=== PATIENT | female | born 1965 | race Caucasian/White ===

== ENCOUNTER → 2016-12-27 | Outpatient (CLI) | payer BC ==
--- NOTE | 2016-12-27 09:50 | MM ---
Reason for exam: additional evaluation requested from prior study. Last mammogram was performed 1 year and 10 months ago. History: Patient had first child at age 30. Family history of premenopausal breast cancer in sister at age 40. Benign US breast aspiration ea add RT of the right breast, February 22, 2015. Benign US breast aspiration single RT of the right breast, February 22, 2015. Benign US breast aspiration ea add LT of the left breast, January 19, 2014. Benign US breast aspiration single LT of the left breast, January 19, 2014. Benign US breast aspiration single RT of the right breast, January 19, 2014. Took hormonal contraceptives for 8 years beginning at age 19. Physical Findings: Nurse did not find any significant physical abnormalities on exam. MG Diagnostic Mammo w CAD LISS Bilateral CC and MLO view(s) were taken. Prior study comparison: February 13, 2015, bilateral MG diagnostic mammo w CAD LISS. January 11, 2014, bilateral MG diagnostic mammo w CAD LISS. The breast tissue is heterogeneously dense. This may lower the sensitivity of mammography. Previous mammotome biopsy in the right and left breast. No significant new findings when compared with previous films. These results were verbally communicated with the patient and result sheet given to the patient on 12/27/16. ASSESSMENT: Benign, BI-RAD 2 RECOMMENDATION: Routine screening mammogram of both breasts in 1 year.
--- NOTE | 2016-12-27 09:53 | USB ---
Reason for exam: follow-up at short interval from prior study. History: Patient had first child at age 30. Family history of premenopausal breast cancer in sister at age 40. Benign US breast aspiration ea add RT of the right breast, February 22, 2015. Benign US breast aspiration single RT of the right breast, February 22, 2015. Benign US breast aspiration ea add LT of the left breast, January 19, 2014. Benign US breast aspiration single LT of the left breast, January 19, 2014. Benign US breast aspiration single RT of the right breast, January 19, 2014. Took hormonal contraceptives for 8 years beginning at age 19. US Breast RT Right breast ultrasound includes all four quadrants, the retroareolar region and axilla. Finding demonstrates a 0.4cm lesion too small to characterize at 10 o'clock, ductal ectasia at the nipple and several cystic lesions measuring 2.0 x 0.7 x 1.9cm at 12 o'clock, 0.9cm at 1 o'clock, 1.7 x 1.9 x 0.7cm at 2 o'clock and 0.8 x 0.7 x 0.8cm at 10 o'clock. These results were verbally communicated with the patient and result sheet given to the patient on 12/27/16. ASSESSMENT: Benign, BI-RAD 2 RECOMMENDATION: Routine screening mammogram of both breasts in 1 year. Back on schedule.
== END | disposition home or self-care (01) ==
LOC: RADMAMWWP 07:43
PROVIDERS: ATTEND Family Medicine
DX: N60.01 Solitary cyst of right breast (principal)
CPT/HCPCS: 76641; G0204

== ENCOUNTER → 2018-01-28 | Outpatient (CLI) | payer BC ==
--- NOTE | 2018-01-29 08:49 | MM ---
Reason for exam: screening (asymptomatic). Last mammogram was performed 1 year and 1 month ago. History: Patient had first child at age 30. Family history of premenopausal breast cancer in sister at age 40. Benign US breast aspiration ea add RT of the right breast, February 22, 2015. Benign US breast aspiration single RT of the right breast, February 22, 2015. Benign US breast aspiration ea add LT of the left breast, January 19, 2014. Benign US breast aspiration single LT of the left breast, January 19, 2014. Benign US breast aspiration single RT of the right breast, January 19, 2014. Took hormonal contraceptives for 8 years beginning at age 19. Physical Findings: A clinical breast exam by your physician is recommended on an annual basis and results should be correlated with mammographic findings. MG Screening Mammo w CAD Bilateral CC and MLO view(s) were taken. Prior study comparison: December 27, 2016, bilateral MG diagnostic mammo w CAD LISS. February 13, 2015, bilateral MG diagnostic mammo w CAD LISS. The breast tissue is heterogeneously dense. This may lower the sensitivity of mammography. Previous mammotome biopsy in the right breast. There is chronic nodularity bilaterally. No significant changes when compared with prior studies. ASSESSMENT: Benign, BI-RAD 2 RECOMMENDATION: Routine screening mammogram of both breasts in 1 year.
== END | disposition home or self-care (01) ==
LOC: RADMAMWWP 10:54
PROVIDERS: ATTEND Family Medicine
DX: Z12.31 Encounter for screening mammogram for malignant neoplasm of breast (principal)
CPT/HCPCS: 77067

== ENCOUNTER → 2019-07-27 | Outpatient (CLI) | payer BC ==
--- NOTE | 2019-07-28 08:24 | MM ---
Reason for exam: screening (asymptomatic). Last mammogram was performed 1 year and 6 months ago. History: Patient is postmenopausal and had first child at age 30. Family history of premenopausal breast cancer in sister at age 40. Benign US breast aspiration ea add RT of the right breast, February 22, 2015. Benign US breast aspiration single RT of the right breast, February 22, 2015. Benign US breast aspiration ea add LT of the left breast, January 19, 2014. Benign US breast aspiration single LT of the left breast, January 19, 2014. Benign US breast aspiration single RT of the right breast, January 19, 2014. Took hormonal contraceptives for 8 years beginning at age 19. Physical Findings: A clinical breast exam by your physician is recommended on an annual basis and results should be correlated with mammographic findings. MG Screening Mammo w CAD Bilateral CC and MLO view(s) were taken. Prior study comparison: January 28, 2018, bilateral MG screening mammo w CAD. December 27, 2016, bilateral MG diagnostic mammo w CAD LISS. The breast tissue is heterogeneously dense. This may lower the sensitivity of mammography. There is chronic nodularity bilaterally. No significant changes when compared with prior studies. ASSESSMENT: Benign, BI-RAD 2 RECOMMENDATION: Routine screening mammogram of both breasts in 1 year.
== END | disposition home or self-care (01) ==
LOC: RADMAMWWP 08:53
PROVIDERS: ATTEND Family Medicine
DX: Z12.31 Encounter for screening mammogram for malignant neoplasm of breast (principal)
CPT/HCPCS: 77067

== ENCOUNTER 2020-05-17 10:43 | Day surgery (SDC) | payer BC ==
[2020-05-16 10:05] VITALS: BMI 30.9
[~2020-05-17 10:43] MED LIST: LACTATED RINGERS 1,000 ML IV SCH
[2020-05-17 11:19] VITALS: RESP 16; TEMP 98.3
[2020-05-17] MEDS ORDERED: LIDOCAINE 1% (10MG/ML) FOR IV START INTRADERMA ONE (11:19)
[2020-05-17] MEDS ORDERED: PROPOFOL 10 MG/ML 20 ML VIAL IV ONE (11:36)
--- NOTE | 2020-05-17 11:52 | P.PCN ---
Date of Procedure: 05/17/20 Procedure(s) Performed: BRIEF HISTORY: Patient is a 54-year-old pleasant female scheduled for an elective colonoscopy as a part of screening for colorectal neoplasia. She has family history of colon cancer diagnosed in her father at age 70. PROCEDURE PERFORMED: Colonoscopy with snare polypectomy. PREOPERATIVE DIAGNOSIS: Screening for colon cancer/family history of colon cancer IV sedation per Anesthesia. PROCEDURE: After informed consent was obtained, the patient, was brought into the endoscopy unit. IV sedation was administered by Anesthesia under continuous monitoring. Digital rectal examination was normal. Initially the Olympus CF-160 flexible video colonoscope was then inserted in the rectum, gradually advanced into the cecum without any difficulty. Careful examination was performed as the scope was gradually being withdrawn. Ileocecal valve and the appendiceal orifice were visualized and appeared normal. Prep was excellent. In the base of the cecum there was a 3 mm and 5 mm polyp that was removed by snare polypectomy. Mucosa of the cecum, ascending colon, transverse colon, descending colon appeared normal. The sigmoid colon there was a 1 cm pedunculated polyp removed by snare polypectomy. Rest of the, sigmoid colon, and rectum appeared normal. Retroflexion was performed in the rectum and no lesions were seen. The patient tolerated the procedure well. IMPRESSION: 3 mm and 5 mm cecal polyp status post polypectomy 1 cm; sigmoid polyp status post polypectomy RECOMMENDATIONS: Findings of this examination were discussed with the patient and if her family. She was advised to follow with the biopsy. The biopsy shows an adenoma she can have a repeat colonoscopy in 3 years.
[2020-05-17 12:10] VITALS: BP 118/72; PULSE 82
== END 2020-05-17 12:46 | disposition home or self-care (01) ==
LOC: ORWHC2ENDO 10:43
PROVIDERS: ATTEND Internal Medicine Gastroenterology
DX: Z12.11 Encounter for screening for malignant neoplasm of colon (principal); D12.0 Benign neoplasm of cecum; D12.5 Benign neoplasm of sigmoid colon; Z80.0 Family history of malignant neoplasm of digestive organs; Z88.5 Allergy status to narcotic agent
CPT/HCPCS: 88305; 45385; J2704

== ENCOUNTER → 2023-07-11 | Outpatient (CLI) | payer BC ==
--- NOTE | 2023-07-11 15:30 | CT ---
EXAMINATION TYPE: CT sinus wo con CT DLP: 569 mGycm, Automated exposure control for dose reduction was used. DATE OF EXAM: 07/11/2023 2:15 PM COMPARISON: None. CLINICAL INDICATION:Female, 58 years old with history of J31.0 CHRONIC RHINITIS; , CHRONIC SINUSITIS TECHNIQUE: Multiple thin axial images were obtained through the paranasal sinuses without the use of IV contrast. Additional coronal and sagittal reformatted images were submitted for evaluation. Contrast used: none Oral contrast used: none FINDINGS: Frontal sinuses: Normally developed and aerated. Frontal Recess: Clear Maxillary Sinuses: Normally developed and aerated. Maxillary Infundibula(OMC): Clear, No Sin cells identified. Ethmoid sinuses: Normally developed and aerated. Ethmoidal notch: Unprotected bilateral anterior ethm oidal arteries. Sphenoid sinuses: Normally developed and aerated. There is sellar sphenoid sinus pneumatization witho ut evidence of dehiscence. No dehiscence of carotid canal. No evidence of optic nerve dehiscence wit hin the sphenoid sinus. No evidence of Onodi cells. Sphenoethmoidal recesses: Clear. Nasal septum: Within normal limits.. Nasal Turbinates: Within normal limits. Mastoid air cells & middle ears: The air cells are clear. The middle ears are grossly unremarkable. Modified Soft tissues & Brain: Partially seen without gross abnormality. Globes are intact. Other: Cribriform plate demonstrates asymmetric Keros classification type 2 on the left and type I on the ri ght cribriform plate. No evidence of bony dehiscence of skull base. Lamina papyracea is intact without evidence of remote orbital fracture or orbital prolapse into the e thmoid sinus. IMPRESSION: 1. No significant mucosal sinus disease. 2. The ostiomeatal units, frontonasal and sphenoethmoidal recesses are clear.
== END | disposition home or self-care (01) ==
LOC: RADCTMAIN 13:36
PROVIDERS: ATTEND Otolaryngology
DX: J31.0 Chronic rhinitis (principal); J32.9 Chronic sinusitis, unspecified
CPT/HCPCS: 70486

== ENCOUNTER 2023-07-16 06:44 | Day surgery (SDC) | payer BC ==
[2023-07-15 09:16] VITALS: BMI 36.0
[2023-07-16] MEDS: LACTATED RINGERS 1,000 ML IV SCH (07:09)
[2023-07-16 07:24] LABS: Glucose,Whole Blood 112 mg/dL (70-110)
[2023-07-16 07:30] VITALS: TEMP 97.8
[2023-07-16] MEDS ORDERED: PROPOFOL 10 MG/ML 20 ML VIAL IV ONE (08:13)
--- NOTE | 2023-07-16 08:30 | P.PCN ---
Date of Procedure: 07/16/23 Procedure(s) Performed: BRIEF HISTORY: Patient is a 58-year-old pleasant female scheduled for an elective colonoscopy as a part of evaluation of prior history of colon polyps. Her last colonoscopy was 3 years ago. PROCEDURE PERFORMED: Colonoscopy. PREOPERATIVE DIAGNOSIS: And history of colon polyps. IV sedation per Anesthesia. PROCEDURE: After informed consent was obtained, the patient, was brought into the endoscopy unit. IV sedation was administered by Anesthesia under continuous monitoring. Digital rectal examination was normal. Initially the Olympus CF-160 flexible video colonoscope was then inserted in the rectum, gradually advanced into the cecum without any difficulty. Careful examination was performed as the scope was gradually being withdrawn. Ileocecal valve and the appendiceal orifice were visualized and appeared normal. Prep was excellent. Mucosa of the cecum, ascending colon, transverse colon, descending colon, sigmoid colon, and rectum appeared normal. Retroflexion was performed in the rectum and no lesions were seen. The patient tolerated the procedure well. IMPRESSION: Normal-appearing colon from rectum to cecum with no evidence of colorectal neoplasia . RECOMMENDATIONS: Findings of this examination were discussed with the patient as well as a family. She was advised to have a repeat colonoscopy in 5 years now because of the prior history of colon polyps.
[2023-07-16 09:06] VITALS: BP 105/64; PULSE 69; RESP 0
== END 2023-07-16 09:20 | disposition home or self-care (01) ==
LOC: ORWHC2ENDO 06:44
PROVIDERS: ATTEND Internal Medicine Gastroenterology
DX: Z12.11 Encounter for screening for malignant neoplasm of colon (principal); E66.9 Obesity, unspecified; H91.90 Unspecified hearing loss, unspecified ear; Z68.35 Body mass index [BMI] 35.0-35.9, adult; Z86.010 Personal history of colon polyps; Z79.899 Other long term (current) drug therapy; Z88.5 Allergy status to narcotic agent
CPT/HCPCS: 45378; J2704

== ENCOUNTER → 2023-07-18 | Outpatient (CLI) | payer BC ==
--- NOTE | 2023-07-18 16:57 | US ---
EXAMINATION TYPE: US venous doppler duplex LE DATE OF EXAM: 07/18/2023 3:52 PM COMPARISON: NONE CLINICAL INDICATION: Female, 58 years old with history of I87.2 VENOUS INSUFFICIENCY (CHRONIC) (PERIP HERAL); Swelling and pain bilateral lower extremities SIDE PERFORMED: Bilateral TECHNIQUE: The lower extremity deep venous system is examined utilizing real time linear array sonog fela with graded compression, doppler sonography and color-flow sonography. VESSELS IMAGED: Common Femoral Vein Deep Femoral Vein Greater Saphenous Vein * Femoral Vein Popliteal Vein Small Saphenous Vein * Proximal Calf Veins (* superficial vessels) Right Leg: Negative for DVT Left Leg: Negative for DVT IMPRESSION: Grayscale, color doppler, spectral doppler imaging performed of the deep veins of the lo wer extremities. There is normal flow, compressibility, vascular waveforms.
== END | disposition home or self-care (01) ==
LOC: RADUSWWP 15:49
PROVIDERS: ATTEND Family Medicine
DX: I87.2 Venous insufficiency (chronic) (peripheral) (principal)
CPT/HCPCS: 93970

== ENCOUNTER → 2023-07-21 | Outpatient (CLI) | payer BC ==
--- NOTE | 2023-07-23 20:02 | MM ---
Reason for Exam: Screening (asymptomatic). Last screening mammogram was performed 12 month(s) ago. Patient History: Menarche at age 11. First Full-Term at age 30. Late child-bearing (after 30). Postmenopausal. Hormonal Contraceptives, starting at age 19 for 8 years. 02/22/2015, Benign Cyst Aspiration on the right side. 02/22/2015, Benign Cyst Aspiration on the right side. 01/19/2014, Benign Cyst Aspiration on the right side. 01/19/2014, Benign Cyst Aspiration on the left side. 01/19/2014, Benign Cyst Aspiration on the left side. Sister had breast cancer, age 40. Risk Values: Zuly 5 year model risk: 2.8%. NCI Lifetime model risk: 14.6%. Prior Study Comparison: 01/28/2018 Bilateral Screening Mammogram, [facility]. 07/27/2019 Bilateral Screening Mammogram, [facility]. 07/19/2022 Bilateral MG 3D screening mammo w/cad, [facility]. Tissue Density: The breast tissue is heterogeneously dense. This may lower the sensitivity of mammography. Findings: Analyzed By CAD. 2 microclips in the right breast and one microclip in the left breast from prior biopsies. Chronic nodularity on the left. There is no suspicious group of microcalcifications or new suspicious mass in either breast. Overall Assessment: Benign, BI-RAD 2 Management: Screening Mammogram of both breasts in 1 year. . Patient should continue monthly self-breast exams. A clinical breast exam by your physician is recommended on an annual basis. This exam should not preclude additional follow-up of suspicious palpable abnormalities. Note on Zuly scores and lifetime risk: 1. A Zuly score greater than 3% is considered moderate risk. If this is the case, consider specialist referral to assess eligibility for a risk reducing agent. 2. If overall lifetime risk for the development of breast cancer is 20% or higher, the patient may qualify for future screening with alternating mammogram and breast MRI. Electronically signed and approved by: Jefferson Kline M.D. Radiologist
== END | disposition home or self-care (01) ==
LOC: RADMAMWWP 16:25
PROVIDERS: ATTEND Family Medicine
DX: Z12.31 Encounter for screening mammogram for malignant neoplasm of breast (principal); Z78.0 Asymptomatic menopausal state; Z80.3 Family history of malignant neoplasm of breast
CPT/HCPCS: 77063; 77067

== ENCOUNTER → 2024-10-05 | Outpatient (CLI) | payer MEDICAID ==
[2024-10-05 13:10] VITALS: BP 140/83; PULSE 109; RESP 16; TEMP 97.8; BMI 38.3
--- NOTE | 2024-10-05 15:31 | P.HPBAR ---
Bariatric H&P - History & Physicial H&P Date: 10/05/24 History & Physicial: Visit/CC: New pt Patient initial contact: Initial weight: Initial weight in pounds: Height: 5 ft 4 in Initial BMI: Last weight: Current weight: 101.264 kg Current weight in pounds: 223.25 Current BMI: 38.3 [place] body weight (based on NIH guidelines): 54.54 kg Excess body weight loss: The patient is a 59 year-old F who presents for Bariatric Assessment. Patient interested in sleeve gastrectomy. Apparently her sister and [id number] both had the sleeve surgery performed and she was happy with her outcomes. Patient has been trying various weight loss measures for at least the last 10 years. Has tried various medications including GLP-1 agonist with marginal success. This is her heaviest weight. Current BMI 38.3. Patient suffers from hypercholesterolemia, GERD, fatty liver, varicose veins. No history of DVT or dysphagia. No tobacco use. Patient works as an COMPUTER SYSTEMS ARCHITECT. Patient takes Protonix daily for the last 2 years because of GERD symptoms. Says it controls her symptoms well. Heart rate today 109 which the patient states she often has issues with mild tachycardia. Surgical history includes tubal ligation, endometrial ablation, colonoscopy, ear tubes. No known hernias in the past. Review of Systems The patient denies any acute changes in vision or hearing, no dysphagia or odynophagia, no chest pain or shortness of breath, no dysuria or hematuria, no headache, no runny nose, no rectal bleeding or melena, no unexplained weight loss Past Medical History Additional Past Medical History / Comment(s): Family hx colon cancer. Occ hemorrhoids. History of Any Multi-Drug Resistant Organisms: None Reported Past Surgical History: Section, Ear Surgery, Tubal Ligation, Uterine Ablation Additional Past Surgical History / Comment(s): ENDOMETRIAL ABLATION WITH NOVASURE 2008?. Colonoscopy. LISS. EAR SURGERY @ AGE 5. 1994 Past Anesthesia/Blood Transfusion Reactions: No Reported Reaction Smoking Status: Never smoker Past Alcohol Use History: Rare Past Drug Use History: None Reported - Past Family History Father Family Medical History: Cancer Additional Family Medical History / Comment(s): COLON/RECTAL CA Mother Family Medical History: Cancer Additional Family Medical History / Comment(s): SARCOMA Sister(s) Family Medical History: Cancer Additional Family Medical History / Comment(s): BREAST CA Surgical - Exam Vital Signs Temp Pulse Resp BP 97.8 F 109 H 16 140/83 10/05/24 13:04 10/05/24 13:04 10/05/24 13:04 10/05/24 13:04 Physical exam: General: Well-developed, well-nourished HEENT: Normocephalic, sclerae nonicteric Abdomen: Nontender, nondistended Extremities: No edema Neuro: Alert and oriented Bariatric Assessment & Plan (1) Obesity (BMI 30-39.9) Narrative/Plan: 59-year-old female with severe obesity. BMI 38.3. Patient I discussed surgical options in detail. Patient is interested in proceeding with sleeve gastrectomy. Will proceed with upper endoscopy first to evaluate for hiatal hernia or consequences of chronic GERD symptoms. Discussed the risks of both sleeve gastrectomy and gastric bypass at length. Also discussed average weight loss amounts postoperatively. Discussed with patient that the sleeve gastrectomy a higher incidence of intractable reflux postoperatively. Patient would like to proceed with upper endoscopy first to assess. Status: Acute Bariatric Checklist Checklist: Plan: Checklist: EGD: 1. Hiatal hernia: 2. H. Pylori: HgbA1c: Vitamin D: Smoking: Never smoker Primary care physician referral: Psychiatry clearance: Cardiology clearance: Sleep study: Diet journal: VTE risk score: VTE risk level: Rehab needs at discharge:
[2024-10-05 20:53] LABS: HCT 42.7 % (37.2-46.3); HGB 13.7 g/dL (12.0-15.0); MCH 25.2 pg (27.0-32.0); MCHC 32.1 g/dL (32.0-37.0); MCV 78.5 FL (80.0-97.0); Mean Platelet Volume 10.5 FL (9.5-12.2); NRBC Per 100 WBC 0 X 10*3/uL (0.00-0.01); Platelet Count 337 X 10*3/uL (140-440); RBC 5.44 X 10*6/uL (4.10-5.20); RDW 14.1 % (11.5-14.5); WBC 8.32 X 10*3/uL (4.50-10.00)
[2024-10-05 21:13] LABS: ALT 40 U/L (8-44); AST 26 U/L (13-35); Albumin 4.4 g/dL (3.8-4.9); Albumin/Globulin Ratio 1.91 Ratio (1.60-3.17); Alkaline Phosphatase 161 U/L (41-126); Blood Urea Nitrogen 13.3 mg/dL (9.0-27.0); Calcium 9.5 mg/dL (8.7-10.3); Carbon Dioxide 22.2 mmol/L (21.6-31.8); Chloride 104 mmol/L (96-109); Globulin 2.3 g/dL (1.6-3.3); Glucose 115 mg/dL (70-110); Iron 57 UG/DL (50-170); Potassium 4.3 mmol/L (3.5-5.5); Sodium 141 mmol/L (135-145); Total Bilirubin 0.3 mg/dL (0.3-1.2); Total Protein 6.7 g/dL (6.2-8.2)
== END ==
LOC: BARWHC3 12:55
PROVIDERS: ATTEND Surgery
DX: E66.01 Morbid (severe) obesity due to excess calories (principal); K44.9 Diaphragmatic hernia without obstruction or gangrene; K21.9 Gastro-esophageal reflux disease without esophagitis; Z68.38 Body mass index [BMI] 38.0-38.9, adult; Z98.890 Other specified postprocedural states; Z88.5 Allergy status to narcotic agent
CPT/HCPCS: 80053; 82306; 82607; 82746; 83036; 83540; 84425; 85027; 99202

== ENCOUNTER → 2024-10-08 | Outpatient (CLI) | payer MEDICAID ==
--- NOTE | 2024-10-11 07:01 | MM ---
Reason for Exam: Screening (asymptomatic). Last mammogram was performed 1 year(s) and 3 month(s) ago. Patient History: Menarche at age 11. First Full-Term at age 30. Late child-bearing (after 30). Postmenopausal. Hormonal Contraceptives, starting at age 19 for 8 years. 02/22/2015, Benign Cyst Aspiration on the right side. 02/22/2015, Benign Cyst Aspiration on the right side. 01/19/2014, Benign Cyst Aspiration on the right side. 01/19/2014, Benign Cyst Aspiration on the left side. 01/19/2014, Benign Cyst Aspiration on the left side. Sister had breast cancer, age 40. Risk Values: Zuly 5 year model risk: 2.9%. NCI Lifetime model risk: 14.3%. Prior Study Comparison: 07/27/2019 Bilateral Screening Mammogram, [facility]. 07/19/2022 Bilateral MG 3D screening mammo w/cad, [facility]. 07/21/2023 Bilateral MG 3D screening mammo w/cad, [facility]. Tissue Density: The breasts are heterogeneously dense, which may obscure small masses. Findings: Analyzed By CAD. There are 2 biopsy clips in the right breast and a single biopsy clip in the left breast redemonstrated. There are a few small round calcifications scattered throughout the left breast redemonstrated. There is a 5 mm circumscribed round mass in the upper outer aspect left breast which is stable or smaller from prior study. Benign-appearing bilateral axillary lymph nodes are redemonstrated There is no suspicious group of microcalcifications or new or enlarging suspicious mass in either breast. Overall Assessment: Benign, BI-RAD 2 Management: Screening Mammogram of both breasts in 1 year. . Patient should continue monthly self-breast exams. A clinical breast exam by your physician is recommended on an annual basis. This exam should not preclude additional follow-up of suspicious palpable abnormalities. Note on Zuly scores and lifetime risk: 1. A Zuly score greater than 3% is considered moderate risk. If this is the case, consider specialist referral to assess eligibility for a risk reducing agent. 2. If overall lifetime risk for the development of breast cancer is 20% or higher, the patient may qualify for future screening with alternating mammogram and breast MRI. [facility], , 10/11/2024 6:57 AM. Electronically signed and approved by: Sachin Lofton M.D.
== END | disposition home or self-care (01) ==
LOC: RADMAMWWP 16:06
PROVIDERS: ATTEND Family Medicine
DX: Z12.31 Encounter for screening mammogram for malignant neoplasm of breast (principal); R92.333 Mammographic heterogeneous density, bilateral breasts; Z78.0 Asymptomatic menopausal state; Z92.0 Personal history of contraception; Z80.3 Family history of malignant neoplasm of breast
CPT/HCPCS: 77063; 77067

== ENCOUNTER → 2024-11-09 | Outpatient (CLI) | payer MEDICAID ==
[2024-11-09 14:09] VITALS: BP 138/87; PULSE 97; RESP 16; TEMP 98.4; BMI 38.9
--- NOTE | 2024-11-09 15:44 | P.BASOAP ---
Subjective Progress Note Date: 11/09/24 Principal diagnosis: Morbid obesity 59-year-old female here after recent upper endoscopy. Patient's upper endoscopy showed a 1 cm hiatal hernia. Patient remains interested in sleeve gastrectomy. Patient takes antiacids once daily. Has good control of her reflux with that. No dysphagia. Objective - Vital Signs Vital signs: Vital Signs Temp 98.4 F 11/09/24 14:06 Pulse 97 11/09/24 14:06 Resp 16 11/09/24 14:06 BP 138/87 11/09/24 14:06 Pulse Ox FiO2 Intake & Output 11/08/24 11/09/24 11/09/24 18:59 06:59 18:59 Weight 102.965 kg - Exam Abdomen: Soft, nontender, nondistended Assessment/Plan (1) Obesity (BMI 30-39.9) Narrative/Plan: 59-year-old female with obesity and associated comorbidities. BMI today 39. Results of recent EGD reviewed in detail. Patient with mild medication controlled acid reflux. Discussed the increased risks of intractable reflux or vomiting after sleeve gastrectomy. Would plan hiatal hernia repair simultaneous to the bariatric procedure unless intraoperative findings completely benign. Patient and I reviewed the surgical consent form in detail. All questions answered. Will tentatively proceed with laparoscopic da Quirino assisted sleeve gastrectomy, possible open in the next 1 to 2 months. The risks of bleeding, infection, stenosis, stricture, leak, abscess, fistula formation, peritonitis, poor weight loss, reflux, vomiting, conversion to an open procedure, aborting sleeve gastrectomy, AR, PE, DVT, and were discussed. The patient understands and wishes to proceed. Plan: Date: 11/09/24 Initial Weight: 101.264 kg Initial BMI: 38.3 Current Weight: 102.965 kg Current BMI: 38.9 Type of Surgery: Total Volume in Band: Previous Volume: Volume Removed: Volume Added: Band Size:
== END ==
LOC: BARWHC3 11:18
PROVIDERS: ATTEND Surgery
DX: E66.01 Morbid (severe) obesity due to excess calories (principal); Z88.5 Allergy status to narcotic agent; Z68.38 Body mass index [BMI] 38.0-38.9, adult
CPT/HCPCS: 99211

== ENCOUNTER → 2024-11-15 | Outpatient (CLI) | payer MEDICAID ==
[2024-11-16 08:58] VITALS: BMI 38.9
== END ==
LOC: BARWHC3 12:57
PROVIDERS: ATTEND Surgery
DX: E66.01 Morbid (severe) obesity due to excess calories (principal); Z71.3 Dietary counseling and surveillance; Z88.5 Allergy status to narcotic agent
CPT/HCPCS: 97804; 99211